=== PATIENT | male | born 1965 | race Caucasian/White ===

== ENCOUNTER 2018-10-24 21:53 | Emergency (ER) | payer MEDICARE ==
[~2018-10-24] VITALS: Ht 175.3 cm; Wt 73.0 kg
[2018-10-24 21:57] VITALS: BP 140/100
[2018-10-24] MEDS ORDERED: LIDOCAINE HCL 1% 20ML VIAL (Pyxis) INJ INFIL ONE (23:45)
[2018-10-24] MEDS ORDERED: BACITRACIN ZINC OINT UDPKT TOP ONE (23:45)
[2018-10-25] MEDS ORDERED: ACETAMINOPHEN 325MG TABLET PO ONE (00:30)
== END 2018-10-25 01:21 | disposition home or self-care (01) ==
LOC: ER 21:53
DX: S01.112A Laceration without foreign body of left eyelid and periocular area, initial encounter (principal); S00.83XA Contusion of other part of head, initial encounter; S60.512A Abrasion of left hand, initial encounter; S60.511A Abrasion of right hand, initial encounter; F31.9 Bipolar disorder, unspecified; W10.8XXA Fall (on) (from) other stairs and steps, initial encounter; Y93.89 Activity, other specified; Y92.89 Other specified places as the place of occurrence of the external cause; Y99.8 Other external cause status
CPT/HCPCS: 12011; 70450; 99284; J3490